=== PATIENT | female | born 1965 | race Caucasian/White ===

== ENCOUNTER → 2016-11-14 | Outpatient (CLI) | payer MEDICARE, OTHER | LOC: US 11-10 11:00 | DX: N64.4 Mastodynia (principal); N60.19 Diffuse cystic mastopathy of unspecified breast; N60.01 Solitary cyst of right breast; N60.02 Solitary cyst of left breast | CPT/HCPCS: 76641-LT; 76641-RT ==

== ENCOUNTER 2020-09-20 11:33 | Observation (INO) | payer MEDICARE, OTHER ==
[~2020-09-20] VITALS: Ht 154.9 cm; Wt 70.3 kg
[2020-09-20 12:39] LABS: HEMOGLOBIN 12.7 gm/dl (12.3-15.3); RED BLOOD COUNT 4.4 M/UL (4.00-5.10); WHITE BLOOD COUNT 14.2 K/UL (4.5-11.0)
[2020-09-20 13:04] LABS: BUN/CREATININE RATIO 18 (0-10)
[2020-09-20] MEDS ORDERED: JAIMIESS 0.15-1 EACH PO (14:53)
[2020-09-20] MEDS ORDERED: XELJANZ XR22 MG PO (14:53)
[2020-09-20] MEDS ORDERED: METHOTREXA25 MG/1 M6 INJ (14:54)
[2020-09-20] MEDS ORDERED: PERCOCET 10-321 EACH PO (14:54)
[2020-09-20] MEDS ORDERED: VISTARIL25 MG PO (14:55)
[2020-09-20] MEDS ORDERED: NEURONTIN400 MG PO (14:56)
[2020-09-20] MEDS ORDERED: OMEPRAZOLE20 MG PO (14:56)
[2020-09-20] MEDS ORDERED: PRAVACHOL20 MG PO (14:56)
[2020-09-20] MEDS ORDERED: SYMBICORT 16010.2 GM INH (14:56)
[2020-09-20] MEDS ORDERED: PREDNISONE 10 M10 MG PO (14:57)
[2020-09-20] MEDS ORDERED: FOLIC ACID 1 MG1 MG PO (14:57)
[2020-09-20] MEDS ORDERED: MECLIZINE HCL25 MG PO (14:58)
[2020-09-20] MEDS ORDERED: SKELAXIN TAB 8800 MG PO (14:58)
[2020-09-21 07:03] LABS: HEMOGLOBIN 13.3 gm/dl (12.3-15.3); RED BLOOD COUNT 4.61 M/UL (4.00-5.10)
[2020-09-21 07:32] LABS: BUN/CREATININE RATIO 13 (0-10)
[2020-09-21] MEDS ORDERED: LOPRESSOR 25 MG25 MG PO (10:33)
[2020-09-21] MEDS ORDERED: ASPIRIN EC81 MG PO (10:33)
== END 2020-09-21 15:53 | disposition home or self-care (01) ==
LOC: ER1 11:33 → MED SURG 4 14:05 → CDU 14:05 → MED SURG 4 20:21
PROVIDERS: Physician Assistant; Physician Assistant Medical; ADMIT Internal Medicine
DX: I63.81 Other cerebral infarction due to occlusion or stenosis of small artery (principal); E87.6 Hypokalemia; E83.42 Hypomagnesemia; I10 Essential (primary) hypertension; E78.5 Hyperlipidemia, unspecified; M06.9 Rheumatoid arthritis, unspecified; G47.33 Obstructive sleep apnea (adult) (pediatric); J44.9 Chronic obstructive pulmonary disease, unspecified; D72.829 Elevated white blood cell count, unspecified; K21.9 Gastro-esophageal reflux disease without esophagitis; Z20.822 Contact with and (suspected) exposure to COVID-19; Z82.3 Family history of stroke; Z79.899 Other long term (current) drug therapy
CPT/HCPCS: ECHO; 36415; 70450; 70496; 70498; 70551; 71045; 80048; 80053; 82550; 82553; 83735; 83874; 84132; 84484; 85025; 85027; 85610; 93005; 93306; 94660; 96374; 96375; 99285; G0378; Q9967; U0002

== ENCOUNTER 2020-11-16 19:32 | Emergency (ER) | payer MEDICARE, OTHER ==
[~2020-11-16 19:32] MED LIST: ASPIRIN EC81 MG PO; FOLIC ACID 1 MG1 MG PO; JAIMIESS 0.15-1 EACH PO; LOPRESSOR 25 MG25 MG PO; MECLIZINE HCL25 MG PO; METHOTREXA25 MG/1 M6 INJ; NEURONTIN400 MG PO; OMEPRAZOLE20 MG PO; PERCOCET 10-321 EACH PO; PRAVACHOL20 MG PO; PREDNISONE 10 M10 MG PO; SKELAXIN TAB 8800 MG PO; SYMBICORT 16010.2 GM INH; VISTARIL25 MG PO; XELJANZ XR22 MG PO
[2020-11-16 20:08] LABS: HEMOGLOBIN 13.5 gm/dl (12.3-15.3); RED BLOOD COUNT 4.68 M/UL (4.00-5.10); WHITE BLOOD COUNT 8.3 K/UL (4.5-11.0)
[2020-11-16 20:26] LABS: BUN/CREATININE RATIO 16 (0-10)
== END 2020-11-16 22:34 | disposition home or self-care (01) ==
LOC: ER1 19:32
PROVIDERS: Physician Assistant Medical
DX: R20.0 Anesthesia of skin (principal); E78.5 Hyperlipidemia, unspecified; I10 Essential (primary) hypertension; Z86.73 Personal history of transient ischemic attack (TIA), and cerebral infarction without residual deficits; M06.9 Rheumatoid arthritis, unspecified; Z79.01 Long term (current) use of anticoagulants; Z79.02 Long term (current) use of antithrombotics/antiplatelets
CPT/HCPCS: 70450; 71045; 80053; 81001; 82550; 82553; 83874; 84484; 85025; 85610; 87086; 93005; 99284

== ENCOUNTER → 2020-12-26 | Outpatient (CLI) | payer MEDICARE, OTHER | LOC: MAMO 10:00 | DX: Z12.31 Encounter for screening mammogram for malignant neoplasm of breast (principal) | CPT/HCPCS: 77063; 77067 ==

== ENCOUNTER → 2021-04-19 | Emergency (ER) | payer MEDICARE, OTHER ==
[~2021-04-19] MED LIST changes: +ZOFRAN4 MG PO
[2021-04-19 13:54] LABS: HEMOGLOBIN 13.7 gm/dl (12.3-15.3); RED BLOOD COUNT 4.85 M/UL (4.00-5.10); WHITE BLOOD COUNT 7.9 K/UL (4.5-11.0)
[2021-04-19 14:22] LABS: BUN/CREATININE RATIO 15 (0-10)
== END | disposition home or self-care (01) ==
LOC: ER1 12:17
PROVIDERS: Physician Assistant
DX: R10.13 Epigastric pain (principal); R10.12 Left upper quadrant pain; R59.0 Localized enlarged lymph nodes; K21.9 Gastro-esophageal reflux disease without esophagitis; M06.9 Rheumatoid arthritis, unspecified
CPT/HCPCS: 80053; 81001; 83690; 85025; 96374; 96375; 99284; C9113; J2405; Q9967

== ENCOUNTER → 2021-10-18 | Outpatient (CLI) | payer OTHER | LOC: HEART 5 10:53 | DX: R06.02 Shortness of breath (principal) | CPT/HCPCS: 94010 ==

== ENCOUNTER → 2022-01-24 | Outpatient (CLI) | payer MEDICARE, OTHER | LOC: MAMO 11:20 | DX: Z12.31 Encounter for screening mammogram for malignant neoplasm of breast (principal) | CPT/HCPCS: 77063; 77067 ==